=== PATIENT | female | born 1945 | race Hispanic/Latino ===

== ENCOUNTER → 2017-07-04 | Outpatient (CLI) | payer MEDICARE | END | disposition home or self-care (01) | LOC: RAH 12:42 | PROVIDERS: ATTEND Internal Medicine | DX: E04.2 Nontoxic multinodular goiter (principal); M50.30 Other cervical disc degeneration, unspecified cervical region; M47.892 Other spondylosis, cervical region; M25.78 Osteophyte, vertebrae; M48.02 Spinal stenosis, cervical region | CPT/HCPCS: 72040; 76536 ==

== ENCOUNTER 2017-09-27 13:37 | Emergency (ER) | payer MEDICARE ==
[2017-09-27] MEDS ORDERED: ACETAMINOPHEN-CODEINE 300/30MG TAB ONE (14:11)
[2017-09-27] MEDS ORDERED: IBUPROFEN 600 MG TABLET ONE (14:11)
== END 2017-09-27 15:29 | disposition home or self-care (01) ==
LOC: EDH 13:37
DX: S52.501A Unspecified fracture of the lower end of right radius, initial encounter for closed fracture (principal); S76.911A Strain of unspecified muscles, fascia and tendons at thigh level, right thigh, initial encounter; W18.39XA Other fall on same level, initial encounter; Y93.01 Activity, walking, marching and hiking; Y92.098 Other place in other non-institutional residence as the place of occurrence of the external cause; Y99.8 Other external cause status
CPT/HCPCS: 29125; 73110; 73552

== ENCOUNTER → 2018-07-17 | Outpatient (CLI) | payer MEDICARE | END | disposition home or self-care (01) | LOC: RAH 11:22 | PROVIDERS: ATTEND Internal Medicine Nephrology | DX: E04.2 Nontoxic multinodular goiter (principal) | CPT/HCPCS: 76536 ==

== ENCOUNTER → 2024-08-28 | Outpatient (CLI) | payer OTHER ==
[~2024-08-28] MED LIST: GADOTERATE MEGLUMINE 10 MMOL/20 ML VIAL IV ONE
--- NOTE | 2024-08-28 09:57 | HMCIMG ---
MR HIP RIGHT WWO HISTORY: Right hip effusion COMPARISON: None TECHNIQUE: MRI of the right hip was performed utilizing multiple pulse sequences in axial, coronal and sagittal planes. Patient was given 17 cc of Clariscan through intravenous route. FINDINGS: Degenerative changes are seen. No evidence of joint effusion is seen. No MR evidence of avascular necrosis, stress fracture or dislocation. No evidence of fracture or dislocation is seen. IMPRESSION: 1. No evidence of joint effusion is seen. No evidence of fracture or dislocation is seen.
== END | disposition home or self-care (01) ==
LOC: RAH 07:18
PROVIDERS: ATTEND Internal Medicine
DX: M16.11 Unilateral primary osteoarthritis, right hip (principal); R22.40 Localized swelling, mass and lump, unspecified lower limb
CPT/HCPCS: 73723; A9575